=== PATIENT | female | born 1970 | race Caucasian/White ===

== ENCOUNTER 2022-02-10 11:07 | Emergency (ER) | payer BC ==
[2022-02-10] MEDS ORDERED: HYDROmorphone 1 MG/ML Syringe IM ONE (11:19)
[2022-02-10] MEDS ORDERED: HYDROmorphone 1 MG/ML Syringe IVPUSH ONE (11:35)
[2022-02-10] MEDS ORDERED: Sodium Chloride 0.9% 1,000 ML IV ONE (11:35)
[2022-02-10] MEDS ORDERED: Ondansetron 4 MG/2 ML SDV IVPUSH ONE (11:35)
[2022-02-10] MEDS ORDERED: Lidocaine 2% 5 ML SDV INJECT ONE (11:58)
[2022-02-10] MEDS ORDERED: Diphtheria,Pertussis(Acell),Tetanus Vaccine 0.5 ML Syringe IM ONE (11:59)
[2022-02-10] MEDS ORDERED: Lidocaine 2% 5 ML SDV ONE (11:59)
[2022-02-10] MEDS ORDERED: Bacitracin/Neomycin/Polymyxin B Oint 0.9 GM U/D Packet TOP ONE (12:30)
[2022-02-10] MEDS ORDERED: Bacitracin/Neomycin/Polymyxin B Oint 0.9 GM U/D Packet ONE (12:38)
== END 2022-02-10 13:15 | disposition home or self-care (01) ==
LOC: KA.ED 11:07
DX: S62.634B Displaced fracture of distal phalanx of right ring finger, initial encounter for open fracture (principal); Z23 Encounter for immunization; Z88.6 Allergy status to analgesic agent; Z88.8 Allergy status to other drugs, medicaments and biological substances; W22.8XXA Striking against or struck by other objects, initial encounter
CPT/HCPCS: 12001; 73140-RT; 90471; 90715; 96361; 96374; 96375; 99283; 99283-25; J1170; J2405; J7030

== ENCOUNTER 2023-04-25 19:33 | Emergency (ER) | payer BC ==
[2023-04-25] MEDS ORDERED: Sodium Chloride 0.9% 10 ML Syringe FLUSH PRN (19:53)
[2023-04-25] MEDS ORDERED: Ketorolac 30 MG/ML SDV IVPUSH ONE (19:54)
[2023-04-25 20:14] LABS: BASOPHILS ABSOLUTE AUTO 0.05 10^3/uL (0.00-0.10); BASOPHILS PERCENT AUTO 0.4 % (0.0-1.0); EOSINOPHILS ABSOLUTE AUTO 0.09 10^3/uL (0.10-0.30); EOSINOPHILS PERCENT AUTO 0.7 % (1.0-3.0); HEMATOCRIT 41.7 % (37.0-47.0); IMMATURE GRAN ABSOLUTE AUTO 0.04 10^3/uL (0.00-0.50); IMMATURE GRAN PERCENT AUTO 0.3 % (0.0-5.0); LYMPHOCYTES ABSOLUTE AUTO 1.93 10^3/uL (1.00-4.00); MEAN CORPUSCULAR HEMOGLOBIN 29.8 pg (27.0-31.0); MEAN CORPUSCULAR HGB CONC 33.6 g/dL (32.0-36.0); MEAN CORPUSCULAR VOLUME 88.7 fL (82.0-92.0); MEAN PLATELET VOLUME 9.4 fL (7.4-10.4); MONOCYTES ABSOLUTE AUTO 1.14 10^3/uL (0.10-0.80); MONOCYTES PERCENT AUTO 9.5 % (2.0-8.0); NEUTROPHILS PERCENT AUTO 73.1 % (50.0-70.0); PLATELET COUNT,PLT 248 10^3/uL (150-400); RED CELL DISTRIBUTION WIDTH 12.8 % (11.5-14.5); WHITE BLOOD CELL COUNT,WBC 12.05 10^3/uL (5.00-10.00)
[2023-04-25 20:20] LABS: APPEARANCE,URINE CLEAR (CLEAR); BILIRUBIN,URINE NEGATIVE (NEGATIVE); COLOR,URINE YELLOW (YELLOW); GLUCOSE,URINE NEGATIVE (NEGATIVE); KETONES,URINE NEGATIVE (NEGATIVE); LEUKOCYTE ESTERASE,URINE NEGATIVE (NEGATIVE); NITRITE,URINE NEGATIVE (NEGATIVE); OCCULT BLOOD,URINE NEGATIVE (NEGATIVE); PH,URINE 5.5 (5.0-9.0); PROTEIN,URINE NEGATIVE (NEGATIVE); UROBILINOGEN,URINE 0.2 E.U./dL (0.2-1.0)
[2023-04-25] MEDS ORDERED: Sodium Chloride 0.9% 1,000 ML IV ONE (20:23)
[2023-04-25] MEDS ORDERED: HYDROmorphone 1 MG/ML Syringe IVPUSH ONE (20:34)
[2023-04-25 20:35] LABS: ALANINE AMINOTRANSFERASE,ALT 30 U/L (14-63); ALBUMIN 3.54 g/dL (3.40-5.00); ALKALINE PHOSPHATASE 80 U/L (46-116); ANION GAP 12.6 mmol/L (5-15); ASPARTATE AMNIOTRANSFERASE,AST 22 U/L (15-37); BILIRUBIN TOTAL 0.6 mg/dL (0.2-1.0); BLOOD UREA NITROGEN,BUN 9 mg/dL (7-18); CALCIUM 8.7 mg/dL (8.7-10.3); CHLORIDE,CL 99 mmol/L (98-107); GLUCOSE RANDOM 134 mg/dL (70-140); POTASSIUM,K 3.6 mmol/L (3.5-5.1); PROTEIN TOTAL,TP 7.5 g/dL (6.4-8.2); SODIUM,NA 135 mmol/L (136-145)
[2023-04-25 20:37] LABS: ESTIMATED GFR 105 mL/min (>=60)
[2023-04-25] MEDS ORDERED: Iopamidol 755 Mg/ML 100 ML Bottle IV ONE (20:46)
[2023-04-25] MEDS ORDERED: Sodium Chloride 0.9% 50 ML IV SCH (21:00)
[2023-04-25] MEDS ORDERED: Acetaminophen/HYDROcodone 325-5 MG Tab PO ONE (22:04)
== END 2023-04-25 22:27 | disposition home or self-care (01) ==
LOC: KA.ED 19:33
DX: D25.2 Subserosal leiomyoma of uterus (principal); Z88.5 Allergy status to narcotic agent; Z88.6 Allergy status to analgesic agent
CPT/HCPCS: 74177; 80053; 81003; 81025; 82947; 85025; 96361; 96374; 96375; 99284; 99284-25; A9270-GY; J1170; J1885; J3490; J7030; Q9967